=== PATIENT | male | born 1965 | race American Indian/Alaskan Native ===

== ENCOUNTER 2017-08-07 08:58 | Emergency (ER) | payer OTHER ==
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
[2017-08-07 09:13] VITALS: BMI 29.0
[2017-08-07 09:20] VITALS: O2SAT 98
--- NOTE | 2017-08-07 11:00 | RAD ---
PROCEDURE: Right Hand Radiographs. HISTORY: rt. hand 1st MCPJ pain x 1 month s/p injury COMPARISON: None. FINDINGS: BONES: Bone alignment and mineralization are normal. No acute fracture. JOINTS: Normal. No osteoarthritic changes. SOFT TISSUES: Normal. OTHER FINDINGS: None. IMPRESSION: No acute fracture or dislocation.
[2017-08-07 11:23] VITALS: BP 127/74; PULSE 75; RESP 18
[2017-08-07 11:29] VITALS: TEMP 98.2
--- NOTE | 2017-08-07 17:43 | US ---
PROCEDURE: Left lower extremity venous US HISTORY: Leg pain and swelling. Evaluate for DVT. PHYSICIAN(S): Leo Fritz MD. TECHNIQUE: Duplex sonography and color-flow Doppler with graded compression were used to evaluate the deep venous system of the left lower extremity. FINDINGS: The visualized deep venous system of the left lower extremity is sonographically normal and compressible. Normal wave forms and augmentation are seen. There is no sonographic evidence for deep venous thrombosis in the visualized segments of the left lower extremity. IMPRESSION: 1. No sonographic evidence for deep venous thrombosis in the visualized segments of the left lower extremity.
== END 2017-08-07 11:29 | disposition home or self-care (01) ==
LOC: ED 08:58
DX: S69.91XA Unspecified injury of right wrist, hand and finger(s), initial encounter (principal); Y04.0XXA Assault by unarmed brawl or fight, initial encounter; Y93.9 Activity, unspecified; Y92.9 Unspecified place or not applicable; M79.644 Pain in right finger(s); I87.2 Venous insufficiency (chronic) (peripheral)